=== PATIENT | female | born 1935 | race American Indian/Alaskan Native ===

== ENCOUNTER 2017-11-23 13:22 | Inpatient (IN) | payer OTHER ==
[2017-11-23 13:40] VITALS: BMI 28.3
[2017-11-23] MEDS ORDERED: Cefepime IV 1 gm in Dextrose 1 GM/50 ML BAG IVPB STA (14:07)
[2017-11-23] MEDS ORDERED: Albuterol-Ipratrop 3 mg / 0.5 (3 ml) UD INH STA (14:07)
--- NOTE | 2017-11-23 14:32 | C.PDOC ---
History Of Present Illness 82 yr old female presents to the ER for respiratory distress from retirement. Patient was given duoneb, PO prednisone, magnesium and terbutaline in route. ROS is unable to be obtained. Time Seen by Provider: 11/23/17 13:36 Chief Complaint (Nursing): Shortness Of Breath History Per: EMS, Other (retirement) History/Exam Limitations: clinical condition Onset/Duration Of Symptoms: Unknown Past Medical History Reviewed: Historical Data, Nursing Documentation, Vital Signs Vital Signs: Last Vital Signs Temp 98.1 F 11/23/17 13:37 Pulse 113 H 11/23/17 14:18 Resp 33 H 11/23/17 13:37 BP 88/31 L 11/23/17 13:37 Pulse Ox Family History: States: No Known Family Hx Review Of Systems Review Of Systems: ROS cannot be obtained secondary to pt's inabilty to answer questions. Physical Exam - Physical Exam Appears: Non-toxic Skin: Warm, Dry, No Rash Oral Mucosa: Moist Tongue: No Swelling Lips: No Swelling Neck: Normal, Normal ROM, Supple Cardiovascular: Rhythm Regular, No Murmur Respiratory: Decreased Breath Sounds (at the bases, bilateral), No Rales, Other (+ increased respiortory rate) Gastrointestinal/Abdominal: Normal Exam, Soft, No Tenderness, No Guarding, No Rebound Neurological/Psych: Other (unable to assess secondary to BIPAP, patient is opening eyes spontaneously) ED Course And Treatment - Laboratory Results Result Diagrams: 11/23/17 15:58 11/23/17 15:58 ECG: Interpreted By Me, Viewed By Me ECG Rhythm: Sinus Tachycardia Interpretation Of ECG: Normal intervals. Normal axis. Diffuse T wave flattening. Rate From EC (BPM) - Other Rad CXR X-Ray: Viewed By Me, Read By Radiologist Interpretation: PROCEDURE: CHEST RADIOGRAPH, 1 VIEW. HISTORY: SOB. COMPARISON: None available. FINDINGS: The right PICC line terminates in the axillary vein. LUNGS: There is patient rotation to the right. The lungs are well inflated. There is airspace disease in the right lower lobe. The left lung is clear. PLEURA: There is a moderate right pleural effusion. No pneumothorax or left pleural fluid seen. CARDIOVASCULAR: Normal. OSSEOUS STRUCTURES: No significant abnormalities. VISUALIZED UPPER ABDOMEN: Normal. OTHER FINDINGS: None. IMPRESSION: Suspect right lower lobe pneumonia and moderate right pleural effusion. Follow-up to resolution is advised. Right PICC line terminates in the axillary vein. Critical Care Time - Critical Care Note Total Time (in mins): 60 Documented critical care: time excludes all time spent performing seperately billable procedures. Medical Decision Making Medical Decision Making: IMPRESSION: COPD exacerbation PLAN: * CXR * EKG * Labs * Duoneb INH * Solumedrol IVP * Cefepime IVPB NOTE: * Daughter at bedside states the patient has a living will that is unavailable at this time * shelter staff were contacted in attempt to obtained the will * Dr. Cevallos & Dr. Roa were contacted regarding the patient * Dr. Roa at bedside - 1955 * Patient is admitted to ICU under Dr. Roa with Dr. Cevallos as ICU consult Disposition Discussed With DrFernanda: Sae Roa Doctor Will See Patient In The: ED Counseled Patient/Family Regarding: Studies Performed, Diagnosis - Disposition Referrals: Tyler Cevallos MD [Staff Provider] - Disposition: HOSPITALIZED Condition: GUARDED Forms: [facility] (Portuguese) - Clinical Impression Clinical Impression: Chr obstructive pulmonary disease w/ acute lower respiratory infxn - Scribe Statement The provider has reviewed the documentation as recorded by the Scribe Angie Best Provider Attestation: All medical record entries made by the Scribe were at my direction and personally dictated by me. I have reviewed the chart and agree that the record accurately reflects my personal performance of the history, physical exam, medical decision making, and the department course for this patient. I have also personally directed, reviewed, and agree with the discharge instructions and disposition.
[2017-11-23] MEDS ORDERED: Sodium Chloride 0.9% 1,000 ML IV ONE ×2 (14:34→16:21)
[2017-11-23] MEDS ORDERED: Sodium Chloride 0.9% 1,000 ML ONE (14:59)
--- NOTE | 2017-11-23 15:05 | RAD ---
PROCEDURE: CHEST RADIOGRAPH, 1 VIEW HISTORY: SOB COMPARISON: None available. FINDINGS: The right PICC line terminates in the axillary vein. LUNGS: There is patient rotation to the right. The lungs are well inflated. There is airspace disease in the right lower lobe. The left lung is clear. PLEURA: There is a moderate right pleural effusion. No pneumothorax or left pleural fluid seen. CARDIOVASCULAR: Normal. OSSEOUS STRUCTURES: No significant abnormalities. VISUALIZED UPPER ABDOMEN: Normal. OTHER FINDINGS: None. IMPRESSION: Suspect right lower lobe pneumonia and moderate right pleural effusion. Follow-up to resolution is advised. Right PICC line terminates in the axillary vein.
[2017-11-23 16:08] LABS: BASO # 0.1 K/uL (0.0-0.2); BASO % 0.1 % (0.0-2.0); EOS # 0.2 K/uL (0.0-0.7); EOS % 0.2 % (0.0-4.0); LYMPH # 2.2 K/uL (1.0-4.3); LYMPH % 2.8 % (20.0-40.0); MEAN CELL VOLUME 89.6 fL (81.0-99.0); MEAN CORPUSCULAR HEMOGLOBIN 26.1 pg (27.0-31.0); MEAN CORPUSCULAR HGB CONC 29.2 g/dL (33.0-37.0); MEAN PLATELET VOLUME 8.2 fL (7.2-11.7); MONO # 1.5 K/uL (0.0-0.8); NEUT # 71.7 K/uL (1.8-7.0); NEUT % 94.9 % (50.0-75.0); NRBC % 0.5 % (0.0-2.0); PLATELET COUNT 496 K/uL (130-400); RBC 4.56 Mil/uL (3.80-5.20); RED CELL DISTRIBUTION WIDTH 21.2 % (11.5-14.5)
[2017-11-23 16:14] LABS: ALBUMIN 2.7 g/dL (3.5-5.0); ALT/SGPT 17 U/L (9-52); AST/SGOT 44 U/L (14-36); BLOOD UREA NITROGEN 30 mg/dL (7-17); GFR AFRICAN-AMERICAN 38; GFR NON-AFRICAN AMERICAN 31; MAGNESIUM 3.2 mg/dL (1.6-2.3)
[2017-11-23 16:16] LABS: HEMOGLOBIN 12.2 g/dL (11.0-16.0); INR 0.9
[2017-11-23 16:17] LABS: WHITE BLOOD COUNT 75.7 K/uL (4.8-10.8)
[2017-11-23 16:26] LABS: B-TYPE NATRIURETIC PEPTIDE 3440 pg/mL (0-900)
[2017-11-23 16:52] LABS: ARTERIAL BLOOD GAS HCO3 16.2 mmol/L (21-28); ARTERIAL BLOOD GAS PCO2 45 mm/Hg (35-45); ARTERIAL BLOOD GAS PH 7.18 (7.35-7.45); ARTERIAL BLOOD GAS PO2 286 mm/Hg (80-100); ARTERIAL BLOOD GAS TCO2 18.2 mmol/L (22-28)
[2017-11-23] MEDS ORDERED: Piperacillin/Tazobact 2.25 GM in Sodium Chloride 100 ML IVPB SCH (17:15)
--- NOTE | 2017-11-23 17:29 | CP.PCM.CON ---
<[place] - Last Filed: 11/23/17 18:02> History of Present Illness - History of Present Illness History of Present Illness: 82 year old female with a past medical history of COPD, DM, Colon cancer (s/p resection: no chemotherapy or radiation), CAD, two myocardial infarctions (s/p angioplasty), ?spinal stenosis who comes in from the [facility] rehabilitation with complaints of shortness of breath. Patient was unable to talk and the history was obtained by the two daughters. Per the daughter the patient has had multiple stays at [facility] over the past two months(starting in October 2017) for the same symptoms. ROS unobtainable due to acuity of the condition. PMD: Dr. Cadena Past medical history: COPD, DM, colon cancer, cad, mi, ?spinal stenosis Allergies: Codeine, oxycodone Medications: Med's weren't on the patient. Daughter said she would go and bring them in for input. Past surgical history: resection of Colon Cancer (2010) Social history: Former smoker (40 years). Quit in 2005. Denies alcohol or illicit drug use. Review of Systems - Review of Systems Systems not reviewed;Unavailable: Acuity of Condition Past Patient History - Past Social History Smoking Status: Never Smoked - CARDIAC Hx Cardiac Disorders: Yes Hx Hypertension: Yes - PULMONARY Hx Respiratory Disorders: Yes Hx Chronic Obstructive Pulmonary Disease (COPD): Yes - ENDOCRINE/METABOLIC Hx Endocrine Disorders: Yes Hx Diabetes Mellitus Type 2: Yes - GASTROINTESTINAL Hx Gastrointestinal Disorders: Yes Other/Comment: Possible CDiff - PSYCHIATRIC Hx Psychophysiologic Disorder: Yes Hx Anxiety: Yes Hx Depression: Yes Hx Substance Use: No Meds Allergies/Adverse Reactions: Allergies Allergy/AdvReac Type Severity Reaction Status Date / Time codeine Allergy Verified 11/23/17 16:42 oxycodone Allergy Verified 11/23/17 16:42 - Medications Medications: Current Medications Piperacillin Sod/Tazobactam Sod (Zosyn 2.25 Gm Iv Premix) 2.25 gm in 50 mls @ 100 mls/hr IVPB Q8H NATHAN Vancomycin/Sodium Chloride (Vancomycin 1 Gm/Ns 200 Ml) 1 gm in 200 mls @ 133 mls/hr IVPB ONCE ONE Stop: 11/23/17 19:30 Pantoprazole Sodium (Protonix Inj) 40 mg IVP DAILY NATHAN Physical Exam - Head Exam Head Exam: ATRAUMATIC, NORMAL INSPECTION, NORMOCEPHALIC - ENT Exam ENT Exam: Mucous Membranes Moist, Normal Exam - Neck Exam Neck exam: Positive for: Normal Inspection - Respiratory Exam Respiratory Exam: Decreased Breath Sounds, Rhonchi. absent: Accessory Muscle Use, Wheezes, NORMAL BREATHING PATTERN - Cardiovascular Exam Cardiovascular Exam: REGULAR RHYTHM, +S1, +S2 - GI/Abdominal Exam GI & Abdominal Exam: Normal Bowel Sounds, Soft. absent: Tenderness - Extremities Exam Extremities exam: Positive for: normal inspection. Negative for: full ROM, pedal edema - Back Exam Back exam: NORMAL INSPECTION. absent: CVA tenderness (L), CVA tenderness (R), paraspinal tenderness - Neurological Exam Neurological exam: Alert - Psychiatric Exam Psychiatric exam: Normal Affect, Normal Mood - Skin Skin Exam: Dry, Intact, Normal Color Results - Vital Signs Recent Vital Signs: Last Vital Signs Temp 98.1 F 11/23/17 13:37 Pulse 113 H 11/23/17 14:18 Resp 33 H 11/23/17 13:37 BP 88/31 L 11/23/17 13:37 Pulse Ox - Labs Result Diagrams: 11/23/17 15:58 11/23/17 15:58 Labs: Laboratory Results - last 24 hr 11/23/17 11/23/17 11/23/17 15:58 15:58 15:58 WBC 75.7 H* RBC 4.56 Hgb 12.2 Hct 40.8 MCV 89.6 MCH 26.1 L MCHC 29.2 L RDW 21.2 H Plt Count 496 H MPV 8.2 Neut % (Auto) 94.9 H Lymph % (Auto) 2.8 L [place] % (Auto) 2.0 Eos % (Auto) 0.2 Baso % (Auto) 0.1 Neut # (Auto) 71.7 H Lymph # (Auto) 2.2 [place] # (Auto) 1.5 H Eos # (Auto) 0.2 Baso # (Auto) 0.1 PT 10.0 INR 0.9 APTT 68 H Puncture Site pCO2 pO2 HCO3 ABG pH ABG Total CO2 ABG O2 Saturation ABG Base Excess Danie Test ABG Potassium A-a O2 Difference Respiratory Index Glucose Lactate Vent Mode FiO2 Inspiratory BiPAP Expiratory BiPAP Crit Value Called To Crit Value Called By Crit Value Read Back Blood Gas Notified Time Sodium 127 L Potassium 4.7 Chloride 97 L Carbon Dioxide 19 L Anion Gap 15 BUN 30 H Creatinine 1.6 H Est GFR ( Amer) 38 Est GFR (Non-Af Amer) 31 Random Glucose 185 H Calcium 8.0 L Magnesium 3.2 H Total Bilirubin 0.3 AST 44 H ALT 17 Alkaline Phosphatase 199 H Troponin I < 0.0120 NT-Pro-B Natriuret Pep 3440 H Total Protein 5.5 L Albumin 2.7 L Globulin 2.8 Albumin/Globulin Ratio 1.0 Arterial Blood Potassium 11/23/17 16:49 WBC RBC Hgb Hct MCV MCH MCHC RDW Plt Count MPV Neut % (Auto) Lymph % (Auto) [place] % (Auto) Eos % (Auto) Baso % (Auto) Neut # (Auto) Lymph # (Auto) [place] # (Auto) Eos # (Auto) Baso # (Auto) PT INR APTT Puncture Site Lb pCO2 45 pO2 286 H HCO3 16.2 L ABG pH 7.18 L* ABG Total CO2 18.2 L ABG O2 Saturation 101.0 H ABG Base Excess -11.3 L Danie Test Na ABG Potassium 4.7 A-a O2 Difference 371.0 Respiratory Index 1.3 Glucose 194 H Lactate 2.7 H Vent Mode Bipap FiO2 100.0 Inspiratory BiPAP 14 Expiratory BiPAP 6 Crit Value Called To Dr. asencio Crit Value Called By Aydin hassan Crit Value Read Back Y Blood Gas Notified Time 1652 Sodium 128.0 L Potassium Chloride 104.0 Carbon Dioxide Anion Gap BUN Creatinine Est GFR ( Amer) Est GFR (Non-Af Amer) Random Glucose Calcium Magnesium Total Bilirubin AST ALT Alkaline Phosphatase Troponin I NT-Pro-B Natriuret Pep Total Protein Albumin Globulin Albumin/Globulin Ratio Arterial Blood Potassium 4.7 Assessment & Plan - Assessment and Plan (Free Text) Assessment: 82 year old female with past medical history of COPD, DM, CAD, 2MI(s/p angioplasty), colon cancer(s/p resection), ?spinal stenosis who comes in from the half-way rehabilitation due to COPD exacerbation. Plan: Neurology -AOX3. -No intervention at this time. Pulmonary -Chest xray showed possible right lower lobe pneumonia and moderate right pleurel effusion -Zosyn 2.25gm q8 -Vancomycin 1gm STAT dose. Will reassess in the morning. Endocrinology -ISS low -Accuchecks [facility] Hematology/ Oncology -Upon admission patient WBC:75.7. -Possible malignant process due to the marked elevated of the WBC count. -Patient has a medical history positive for colon cancer in 2010 s/p resection with no chemotherapy or radiation. -Hematology/onc consulted. Will f/u with results. PPX -Lovenox 30mg SC Daily -Protonix 40mg IVP Daily <Tyler Cevallos - Last Filed: 11/23/17 18:08> Meds - Medications Medications: Current Medications Albuterol/Ipratropium (Duoneb 3 Mg/0.5 Mg (3 Ml) Ud) 3 ml INH RQ4 NATHAN Enoxaparin Sodium (Lovenox) 30 mg SC DAILY NATHAN Piperacillin Sod/Tazobactam Sod (Zosyn 2.25 Gm Iv Premix) 2.25 gm in 50 mls @ 100 mls/hr IVPB Q8H NATHAN Vancomycin/Sodium Chloride (Vancomycin 1 Gm/Ns 200 Ml) 1 gm in 200 mls @ 133 mls/hr IVPB ONCE ONE Stop: 11/23/17 19:30 Insulin Aspart (Novolog) 0 unit SC [facility] PRN Reason: Protocol Methylprednisolone (Solu-Medrol) 40 mg IVP Q8 NATHAN Pantoprazole Sodium (Protonix Inj) 40 mg IVP DAILY [facility] Last Admin: 11/23/17 17:39 Dose: 40 mg Results - Vital Signs Recent Vital Signs: Last Vital Signs Temp 97.5 F L 11/23/17 17:38 Pulse 105 H 11/23/17 17:38 Resp 22 11/23/17 17:38 BP 127/66 11/23/17 17:38 Pulse Ox 100 11/23/17 17:38 - Labs Result Diagrams: 11/23/17 15:58 11/23/17 15:58 Labs: Laboratory Results - last 24 hr 11/23/17 11/23/17 11/23/17 15:58 15:58 15:58 WBC 75.7 H* RBC 4.56 Hgb 12.2 Hct 40.8 MCV 89.6 MCH 26.1 L MCHC 29.2 L RDW 21.2 H Plt Count 496 H MPV 8.2 Neut % (Auto) 94.9 H Lymph % (Auto) 2.8 L [place] % (Auto) 2.0 Eos % (Auto) 0.2 Baso % (Auto) 0.1 Neut # (Auto) 71.7 H Lymph # (Auto) 2.2 [place] # (Auto) 1.5 H Eos # (Auto) 0.2 Baso # (Auto) 0.1 Neutrophils % (Manual) 54 Band Neutrophils % 20 H* Lymphocytes % (Manual) 3 L Reactive Lymphs % 1 H Monocytes % (Manual) 3 Eosinophils % (Manual) 1 Metamyelocytes % 7 H Myelocytes % 8 H Promyelocytes % 3 H Nucleated RBC % 2 H Smudge Cells Present Platelet Estimate Increased H Large Platelets Present Hypochromasia (manual) Slight Anisocytosis (manual) Slight PT 10.0 INR 0.9 APTT 68 H Puncture Site pCO2 pO2 HCO3 ABG pH ABG Total CO2 ABG O2 Saturation ABG Base Excess Danie Test ABG Potassium A-a O2 Difference Respiratory Index Glucose Lactate Vent Mode FiO2 Inspiratory BiPAP Expiratory BiPAP Crit Value Called To Crit Value Called By Crit Value Read Back Blood Gas Notified Time Sodium 127 L Potassium 4.7 Chloride 97 L Carbon Dioxide 19 L Anion Gap 15 BUN 30 H Creatinine 1.6 H Est GFR ( Amer) 38 Est GFR (Non-Af Amer) 31 Random Glucose 185 H Calcium 8.0 L Magnesium 3.2 H Total Bilirubin 0.3 AST 44 H ALT 17 Alkaline Phosphatase 199 H Troponin I < 0.0120 NT-Pro-B Natriuret Pep 3440 H Total Protein 5.5 L Albumin 2.7 L Globulin 2.8 Albumin/Globulin Ratio 1.0 Arterial Blood Potassium 11/23/17 16:49 WBC RBC Hgb Hct MCV MCH MCHC RDW Plt Count MPV Neut % (Auto) Lymph % (Auto) [place] % (Auto) Eos % (Auto) Baso % (Auto) Neut # (Auto) Lymph # (Auto) [place] # (Auto) Eos # (Auto) Baso # (Auto) Neutrophils % (Manual) Band Neutrophils % Lymphocytes % (Manual) Reactive Lymphs % Monocytes % (Manual) Eosinophils % (Manual) Metamyelocytes % Myelocytes % Promyelocytes % Nucleated RBC % Smudge Cells Platelet Estimate Large Platelets Hypochromasia (manual) Anisocytosis (manual) PT INR APTT Puncture Site Lb pCO2 45 pO2 286 H HCO3 16.2 L ABG pH 7.18 L* ABG Total CO2 18.2 L ABG O2 Saturation 101.0 H ABG Base Excess -11.3 L Danie Test Na ABG Potassium 4.7 A-a O2 Difference 371.0 Respiratory Index 1.3 Glucose 194 H Lactate 2.7 H Vent Mode Bipap FiO2 100.0 Inspiratory BiPAP 14 Expiratory BiPAP 6 Crit Value Called To Dr. asencio Crit Value Called By Aydin [email or web address] Crit Value Read Back Y Blood Gas Notified Time 1652 Sodium 128.0 L Potassium Chloride 104.0 Carbon Dioxide Anion Gap BUN Creatinine Est GFR ( Amer) Est GFR (Non-Af Amer) Random Glucose Calcium Magnesium Total Bilirubin AST ALT Alkaline Phosphatase Troponin I NT-Pro-B Natriuret Pep Total Protein Albumin Globulin Albumin/Globulin Ratio Arterial Blood Potassium 4.7 Attending/Attestation - Attestation I have personally seen and examined this patient.: Yes I have fully participated in the care of the patient.: Yes I have reviewed all pertinent clinical information: Yes Notes (Text): 11/23/17 18:07 Patient seen and examined 82-year-old female transferred from subacute for shortness of breath On BiPAP Chest x-rayconsistent with right lung infiltrate/effusion Started on IV antibiotics Follow-up culture and sensitivity Bicarbonate for non-anion gap metabolic acidosis IV steroids and nebulizer treatment for COPD ICU monitoring
[2017-11-23 17:46] LABS: BANDS 20 % (0-2); EOSINOPHIL 1 % (0-4); LYMPHOCYTE 3 % (20-40); METAMYELOCYTE 7 % (0-0); MONOCYTE 3 % (0-10); MYELOCYTE 8 % (0-0); NEUTROPHIL 54 % (50-75); NUCLEATED RED BLOOD CELL 2 % (0-0); PROMYELOCYTE 3 % (0-0); REACTIVE LYMPHOCYTES 1 % (0-0); TOTAL CELLS COUNTED 100
[2017-11-23 17:47] LABS: ANISOCYTOSIS SLIGHT; HYPOCHROMIC SLIGHT; LARGE PLATELETS PRESENT; PLATELET ESTIMATE INCREASED (NORMAL); SMUDGE CELLS PRESENT
[2017-11-23] MEDS ORDERED: Piperacill/Tazo 2.25gm in Dex 2.25 GM/50 ML BAG IVPB SCH (18:00)
[2017-11-23] MEDS ORDERED: Vancomycin 1 gm/NS 200 ml 1 GM/200 ML BAG IVPB ONE (18:00)
[2017-11-23] MEDS ORDERED: Sodium Bicarbonate (8.4%) 50 Meq Syringe IVP ONE (18:03)
[2017-11-23 18:31] LABS: SQUAMOUS EPITHIAL 1 /hpf (0-5); URINE AMORPHOUS SEDIMENT OCC /ul (<OCC); URINE BACTERIA OCC (<OCC); URINE BILIRUBIN NEGATIVE (NEGATIVE); URINE BLOOD NEGATIVE (NEGATIVE); URINE CLARITY Hazy (Clear); URINE COLOR Amber (YELLOW); URINE GLUCOSE (UA) NORMAL (Normal); URINE HYALINE CAST >20 /lpf (0-2); URINE LEUKOCYTE ESTERASE NEG Leu/uL (Negative); URINE NITRATE NEGATIVE (NEGATIVE); URINE PROTEIN 1+ mg/dL (NEGATIVE); URINE UROBILINOGEN NORMAL mg/dL (0.2-1.0)
[2017-11-23 19:55] VITALS: RESP 19
[2017-11-23 21:49] VITALS: TEMP 97.1
[2017-11-23] MEDS: Albuterol-Ipratrop 3 mg / 0.5 (3 ml) UD INH SCH (21:49)
[2017-11-23] MEDS ORDERED: (Novolog) Insulin Aspart, Recombinant 100 u/ml 10 ml vial SC SCH (22:00)
[2017-11-23] MEDS ORDERED: MethylPREDNISolone 40 mg Vial IVP SCH (22:00)
[2017-11-23 22:19] VITALS: BP 121/56; O2SAT 93
--- NOTE | 2017-11-23 23:01 | CP.PCM.CON ---
History of Present Illness - History of Present Illness History of Present Illness: 82 year old female with a history of colon cancer s/p surgery and likely cured, COPD, recent hospitalization at [facility] for code sepsis, COPD exacerbation, admitted with shortness of breath, found to have leukocytosis. The patient is currently on bipap and I am unable to obtain a history from her. Per her daughter who are at bedside, she has had recurrent episodes of shortness of breath and she has been in and out of the hospital. Review of her records at [facility] shows her WBC peaked at 25,000 and normalized prior to DC in 10/2017. Her daughter are unaware of her having blood problems in the past. Peripheral smear: Increased WBC with bandemia, mild toxic granulation, mild anisopoikilocytosis, normal appearing platelets, no immature cells noted. Past medical, surgical, family, social history cannot be obtained from the patient Allergies: Codeine, oxycodone Review of systems cannot be obtained. Past Patient History - Past Medical History & Family History Past Medical History?: Yes - Past Social History Smoking Status: Never Smoked - CARDIAC Hx Cardiac Disorders: Yes Hx Hypertension: Yes - PULMONARY Hx Respiratory Disorders: Yes Hx Chronic Obstructive Pulmonary Disease (COPD): Yes - ENDOCRINE/METABOLIC Hx Endocrine Disorders: Yes Hx Diabetes Mellitus Type 2: Yes - HEMATOLOGICAL/ONCOLOGICAL Hx Cancer: Yes - MUSCULOSKELETAL/RHEUMATOLOGICAL Hx Falls: No - GASTROINTESTINAL Hx Gastrointestinal Disorders: Yes Other/Comment: Possible CDiff - PSYCHIATRIC Hx Psychophysiologic Disorder: Yes Hx Anxiety: Yes Hx Depression: Yes Hx Substance Use: No - ANESTHESIA Hx Anesthesia: Yes Hx Anesthesia Reactions: No Hx Malignant Hyperthermia: No Has any member of the family had a problem w/ anesthesia?: No Meds Allergies/Adverse Reactions: Allergies Allergy/AdvReac Type Severity Reaction Status Date / Time codeine Allergy Verified 11/23/17 16:42 oxycodone Allergy Verified 11/23/17 16:42 - Medications Medications: Current Medications Albuterol/Ipratropium (Duoneb 3 Mg/0.5 Mg (3 Ml) Ud) 3 ml INH RQ4 NATHAN Last Admin: 11/23/17 21:49 Dose: 3 ml Enoxaparin Sodium (Lovenox) 30 mg SC DAILY NATHAN Piperacillin Sod/Tazobactam Sod (Zosyn 2.25 Gm Iv Premix) 2.25 gm in 50 mls @ 100 mls/hr IVPB Q8H [facility] Last Admin: 11/23/17 18:28 Dose: 100 mls/hr Insulin Aspart (Novolog) 0 unit SC [facility] PRN Reason: Protocol Last Admin: 11/23/17 22:03 Dose: Not Given Methylprednisolone (Solu-Medrol) 40 mg IVP Q8 [facility] Last Admin: 11/23/17 22:05 Dose: 40 mg Pantoprazole Sodium (Protonix Inj) 40 mg IVP DAILY [facility] Last Admin: 11/23/17 17:39 Dose: 40 mg Physical Exam - Head Exam Head Exam: ATRAUMATIC - Eye Exam Eye Exam: Normal appearance - ENT Exam ENT Exam: Mucous Membranes Dry - Respiratory Exam Respiratory Exam: Decreased Breath Sounds - Cardiovascular Exam Cardiovascular Exam: +S1, +S2 - GI/Abdominal Exam GI & Abdominal Exam: Normal Bowel Sounds Results - Vital Signs Recent Vital Signs: Last Vital Signs Temp 97.1 F L 11/23/17 20:00 Pulse 104 H 11/23/17 22:00 Resp 19 11/23/17 22:00 BP 121/56 L 11/23/17 22:00 Pulse Ox 93 L 11/23/17 22:00 - Labs Result Diagrams: 11/23/17 15:58 11/23/17 15:58 Labs: Laboratory Results - last 24 hr 11/23/17 11/23/17 11/23/17 15:58 15:58 15:58 WBC 75.7 H* RBC 4.56 Hgb 12.2 Hct 40.8 MCV 89.6 MCH 26.1 L MCHC 29.2 L RDW 21.2 H Plt Count 496 H MPV 8.2 Neut % (Auto) 94.9 H Lymph % (Auto) 2.8 L [place] % (Auto) 2.0 Eos % (Auto) 0.2 Baso % (Auto) 0.1 Neut # (Auto) 71.7 H Lymph # (Auto) 2.2 [place] # (Auto) 1.5 H Eos # (Auto) 0.2 Baso # (Auto) 0.1 Neutrophils % (Manual) 54 Band Neutrophils % 20 H* Lymphocytes % (Manual) 3 L Reactive Lymphs % 1 H Monocytes % (Manual) 3 Eosinophils % (Manual) 1 Metamyelocytes % 7 H Myelocytes % 8 H Promyelocytes % 3 H Nucleated RBC % 2 H Smudge Cells Present Platelet Estimate Increased H Large Platelets Present Hypochromasia (manual) Slight Anisocytosis (manual) Slight PT 10.0 INR 0.9 APTT 68 H Puncture Site pCO2 pO2 HCO3 ABG pH ABG Total CO2 ABG O2 Saturation ABG Base Excess Danie Test ABG Potassium A-a O2 Difference Respiratory Index Glucose Lactate Vent Mode FiO2 Inspiratory BiPAP Expiratory BiPAP Crit Value Called To Crit Value Called By Crit Value Read Back Blood Gas Notified Time Sodium 127 L Potassium 4.7 Chloride 97 L Carbon Dioxide 19 L Anion Gap 15 BUN 30 H Creatinine 1.6 H Est GFR ( Amer) 38 Est GFR (Non-Af Amer) 31 POC Glucose (mg/dL) Random Glucose 185 H Calcium 8.0 L Magnesium 3.2 H Total Bilirubin 0.3 AST 44 H ALT 17 Alkaline Phosphatase 199 H Troponin I < 0.0120 NT-Pro-B Natriuret Pep 3440 H Total Protein 5.5 L Albumin 2.7 L Globulin 2.8 Albumin/Globulin Ratio 1.0 Arterial Blood Potassium Urine Color Urine Clarity Urine pH Ur Specific [place] Urine Protein Urine Glucose (UA) Urine Ketones Urine Blood Urine Nitrate Urine Bilirubin Urine Urobilinogen Ur Leukocyte Esterase Urine WBC (Auto) Urine RBC (Auto) Ur Squamous Epith Cells Amorphous Sediment Urine Bacteria Hyaline Casts Urine Yeast (Budding) 11/23/17 11/23/17 11/23/17 16:49 18:02 18:12 WBC RBC Hgb Hct MCV MCH MCHC RDW Plt Count MPV Neut % (Auto) Lymph % (Auto) [place] % (Auto) Eos % (Auto) Baso % (Auto) Neut # (Auto) Lymph # (Auto) [place] # (Auto) Eos # (Auto) Baso # (Auto) Neutrophils % (Manual) Band Neutrophils % Lymphocytes % (Manual) Reactive Lymphs % Monocytes % (Manual) Eosinophils % (Manual) Metamyelocytes % Myelocytes % Promyelocytes % Nucleated RBC % Smudge Cells Platelet Estimate Large Platelets Hypochromasia (manual) Anisocytosis (manual) PT INR APTT Puncture Site Lb pCO2 45 pO2 286 H HCO3 16.2 L ABG pH 7.18 L* ABG Total CO2 18.2 L ABG O2 Saturation 101.0 H ABG Base Excess -11.3 L Danie Test Na ABG Potassium 4.7 A-a O2 Difference 371.0 Respiratory Index 1.3 Glucose 194 H Lactate 2.7 H Vent Mode Bipap FiO2 100.0 Inspiratory BiPAP 14 Expiratory BiPAP 6 Crit Value Called To Dr. asencio Crit Value Called By Aydin hassan Crit Value Read Back Y Blood Gas Notified Time 1652 Sodium 128.0 L Potassium Chloride 104.0 Carbon Dioxide Anion Gap BUN Creatinine Est GFR ( Amer) Est GFR (Non-Af Amer) POC Glucose (mg/dL) 173 H Random Glucose Calcium Magnesium Total Bilirubin AST ALT Alkaline Phosphatase Troponin I NT-Pro-B Natriuret Pep Total Protein Albumin Globulin Albumin/Globulin Ratio Arterial Blood Potassium 4.7 Urine Color Trupti Urine Clarity Hazy Urine pH 5.0 Ur Specific [place] 1.027 Urine Protein 1+ H Urine Glucose (UA) Normal Urine Ketones Trace Urine Blood Negative Urine Nitrate Negative Urine Bilirubin Negative Urine Urobilinogen Normal Ur Leukocyte Esterase Neg Urine WBC (Auto) 3 Urine RBC (Auto) 6 H Ur Squamous Epith Cells 1 Amorphous Sediment Occ H Urine Bacteria Occ H Hyaline Casts >20 H Urine Yeast (Budding) Many H 11/23/17 21:24 WBC RBC Hgb Hct MCV MCH MCHC RDW Plt Count MPV Neut % (Auto) Lymph % (Auto) [place] % (Auto) Eos % (Auto) Baso % (Auto) Neut # (Auto) Lymph # (Auto) [place] # (Auto) Eos # (Auto) Baso # (Auto) Neutrophils % (Manual) Band Neutrophils % Lymphocytes % (Manual) Reactive Lymphs % Monocytes % (Manual) Eosinophils % (Manual) Metamyelocytes % Myelocytes % Promyelocytes % Nucleated RBC % Smudge Cells Platelet Estimate Large Platelets Hypochromasia (manual) Anisocytosis (manual) PT INR APTT Puncture Site pCO2 pO2 HCO3 ABG pH ABG Total CO2 ABG O2 Saturation ABG Base Excess Danie Test ABG Potassium A-a O2 Difference Respiratory Index Glucose Lactate Vent Mode FiO2 Inspiratory BiPAP Expiratory BiPAP Crit Value Called To Crit Value Called By Crit Value Read Back Blood Gas Notified Time Sodium Potassium Chloride Carbon Dioxide Anion Gap BUN Creatinine Est GFR ( Amer) Est GFR (Non-Af Amer) POC Glucose (mg/dL) 214 H Random Glucose Calcium Magnesium Total Bilirubin AST ALT Alkaline Phosphatase Troponin I NT-Pro-B Natriuret Pep Total Protein Albumin Globulin Albumin/Globulin Ratio Arterial Blood Potassium Urine Color Urine Clarity Urine pH Ur Specific [place] Urine Protein Urine Glucose (UA) Urine Ketones Urine Blood Urine Nitrate Urine Bilirubin Urine Urobilinogen Ur Leukocyte Esterase Urine WBC (Auto) Urine RBC (Auto) Ur Squamous Epith Cells Amorphous Sediment Urine Bacteria Hyaline Casts Urine Yeast (Budding) Assessment & Plan (1) Leukocytosis Assessment and Plan: rule out infectious etiology ? reactive, recent steroids WBC normale in 10/2017 at [facility] but will order flow cytometery if WBC does not decline tomorrow to rule out monoclonal population of cells Status: Acute (2) Coagulopathy Assessment and Plan: prolonged PTT ? heparin in line will repeat coags in AM Thank you for this interesting consult. Status: Acute
[2017-11-24] MEDS: Albuterol-Ipratrop 3 mg / 0.5 (3 ml) UD INH SCH ×2 (00:25→03:12)
[2017-11-24 05:35] VITALS: PULSE 110
[2017-11-24 06:52] LABS: PROTHROMBIN TIME 10.6 SECONDS (9.7-12.2)
[2017-11-24 06:52] LABS: BASO # 0.2 K/uL (0.0-0.2); BASO % 0.2 % (0.0-2.0); EOS # 0.3 K/uL (0.0-0.7); EOS % 0.4 % (0.0-4.0); HEMOGLOBIN 11.7 g/dL (11.0-16.0); LYMPH % 4.4 % (20.0-40.0); MEAN CELL VOLUME 91.4 fL (81.0-99.0); MEAN CORPUSCULAR HEMOGLOBIN 26.7 pg (27.0-31.0); MEAN CORPUSCULAR HGB CONC 29.2 g/dL (33.0-37.0); MEAN PLATELET VOLUME 8.2 fL (7.2-11.7); MONO % 2.2 % (0.0-10.0); NEUT # 83.7 K/uL (1.8-7.0); NEUT % 92.8 % (50.0-75.0); NRBC % 0.8 % (0.0-2.0); PLATELET COUNT 330 K/uL (130-400); RBC 4.38 Mil/uL (3.80-5.20)
[2017-11-24 06:56] LABS: WHITE BLOOD COUNT 90.1 K/uL (4.8-10.8)
[2017-11-24] MEDS ORDERED: Sodium Bicarbonate (8.4%) 50 Meq Syringe ONE (07:42)
[2017-11-24] MEDS ORDERED: DOPamine 400mg/250ml D5W IV ONE (07:42)
[2017-11-24] MEDS ORDERED: EPINEPHrine 1 mg/ml (1:1000) Inj ONE (07:42)
[2017-11-24 08:33] LABS: ANISOCYTOSIS MODERATE; BANDS 33 % (0-2); LYMPHOCYTE 4 % (20-40); METAMYELOCYTE 8 % (0-0); MONOCYTE 1 % (0-10); MYELOCYTE 6 % (0-0); NUCLEATED RED BLOOD CELL 2 % (0-0); PLATELET ESTIMATE NORMAL (NORMAL); PROMYELOCYTE 2 % (0-0); TOTAL CELLS COUNTED 100; TOXIC GRANULATION PRESENT
[2017-11-24 08:34] LABS: BURR CELLS SLIGHT; NEUTROPHIL 46 % (50-75)
--- NOTE | 2017-11-24 09:26 | CP.PCM.CON ---
History of Present Illness - History of Present Illness History of Present Illness: Palliative consult requested by Doctor Cid for goals of care and Code status discussion Patient is a 82 yo female admitted from halfway with shortness of breath. Per patient's daughter, patient had similar episodes in past , especially since October when she had multiple readmissions to [facility] for similar symptoms. On this admission patient was diagnosed with exacerbation of COPD and Solu Medrol, Zosyn IVand Lovenox initiated. O2 provided via BiPap. Of concern is patient's WBC of 90.1 today, up from 75.5 yesterday. At [facility] WBC peak was 25.Doctor Leydi is called on case. Patient transfered to ICU for further care. PMH: COPD, DM, colon resection due to colon CA, no chemo/no radiation, CAD, [place] Soc. hx: single, [place] resident Family Hx: daughter denies known family Hx, patient unable to answer questions Review of Systems - Review of Systems All systems: reviewed and no additional remarkable complaints except Review of Systems: ROS unobtainable from patient due to acute respiratory distress. Per nursing, patient still in need for high level of O2 supplement, anxious, afebrile. - Constitutional Constitutional: absent: As Per HPI, Anorexia, Chills, Daytime Sleepiness, Excessive Sweating, Fatigue, Fever, Frequent Falls, Headache, Increased Appetite , Lethargy, Malaise, Night Sweats, Snoring, Sleep Apnea, Weight Gain, Weight Loss, Weakness, Other - EENT Eyes: absent: As Per HPI, Blind Spots, Blurred Vision, Change in Vision, Decreased Night Vision, Diplopia, Discharge, Dry Eye, Exophthalmos, Floaters, Irritation, Itchy Eyes, Loss of Peripheral Vision, Pain, Photophobia, Requires Corrective Lenses, Sees Flashes, Spots in Vision, Tunnel Vision, Other Visual Disturbances, Loss of Vision, Other Ears: absent: As Per HPI, Decreased Hearing, Ear Discharge, Ear Pain, Tinnitus, Abnormal Hearing, Disequilibrium, Dizziness, Other Nose/Mouth/Throat: absent: As Per HPI, Epistaxis, Nasal Congestion, Nasal Discharge, Nasal Obstruction, Nasal Trauma, Nose Pain, Post Nasal Drip, Sinus Pain, Sinus Pressure, Bleeding Gums, Change in Voice, Dental Pain, Dry Mouth, Dysphagia, Halitosis, Hoarsness, Lip Swelling, Mouth Lesions, Mouth Pain, Odynophagia, Sore Throat, Throat Swelling, Tongue Swelling, Facial Pain, Neck Pain, Neck Mass, Other - Breasts Breasts: absent: As Per HPI, Change in Shape, Mass, Pain, Nipple Discharge, Nipple Inversion, Skin Changes, Swelling, Other - Cardiovascular Cardiovascular: Rapid Heart Rate - Respiratory Respiratory: Dyspnea Additional comments: SOB - Gastrointestinal Gastrointestinal: absent: As Per HPI, Abdominal Pain, Belching, Bloating, Change in Bowel Habits, Change in Stool Character, Coffee Ground Emesis, Constipation, Cramping, Diarrhea, Dyspepsia, Dysphagia, Early Satiety, Excessive Flatus, Fecal Incontinence, Heartburn, Hematemesis, Hematochezia, Loose Stools, Melena, Nausea, Odynophagia, Temesmus, Vomiting, Other - Genitourinary Genitourinary: Urinary Incontinence - Reproductive: Female Reproductive:Female: Post Menopausal - Menstruation Menstruation: Post Menopausal - Musculoskeletal Musculoskeletal: Muscle Weakness - Neurological Neurological: Weakness - Psychiatric Psychiatric: Anxiety - Endocrine Endocrine: absent: As Per HPI, Change in Body Appearance, Change in Libido, Cold Intolorance, Deepening of Voice, Excessive Sweating, Fatigue, Flushing, Heat Intolorance, Increase in Ring/Shoe/Hat Size, Palpitations, Polydipsia, Polyphagia, Polyuria, Other - Hematologic/Lymphatic Hematologic: absent: As Per HPI, Easy Bleeding, Easy Bruising, Lymphadenopathy, Other Past Patient History - Past Medical History & Family History Past Medical History?: Yes - Past Social History Smoking Status: Never Smoked - CARDIAC Hx Cardiac Disorders: Yes Hx Hypertension: Yes - PULMONARY Hx Respiratory Disorders: Yes Hx Chronic Obstructive Pulmonary Disease (COPD): Yes - ENDOCRINE/METABOLIC Hx Endocrine Disorders: Yes Hx Diabetes Mellitus Type 2: Yes - HEMATOLOGICAL/ONCOLOGICAL Hx Cancer: Yes - MUSCULOSKELETAL/RHEUMATOLOGICAL Hx Falls: No - GASTROINTESTINAL Hx Gastrointestinal Disorders: Yes Other/Comment: Possible CDiff - PSYCHIATRIC Hx Psychophysiologic Disorder: Yes Hx Anxiety: Yes Hx Depression: Yes Hx Substance Use: No - ANESTHESIA Hx Anesthesia: Yes Hx Anesthesia Reactions: No Hx Malignant Hyperthermia: No Has any member of the family had a problem w/ anesthesia?: No Meds Allergies/Adverse Reactions: Allergies Allergy/AdvReac Type Severity Reaction Status Date / Time codeine Allergy Verified 11/23/17 16:42 oxycodone Allergy Verified 11/23/17 16:42 - Medications Medications: Current Medications Albuterol/Ipratropium (Duoneb 3 Mg/0.5 Mg (3 Ml) Ud) 3 ml INH RQ4 [facility] Last Admin: 11/24/17 03:12 Dose: 3 ml Enoxaparin Sodium (Lovenox) 30 mg SC DAILY [facility] Piperacillin Sod/Tazobactam Sod (Zosyn 2.25 Gm Iv Premix) 2.25 gm in 50 mls @ 100 mls/hr IVPB Q8H [facility] Last Admin: 11/23/17 18:28 Dose: 100 mls/hr Insulin Aspart (Novolog) 0 unit SC ACHS [facility] PRN Reason: Protocol Last Admin: 11/23/17 22:03 Dose: Not Given Methylprednisolone (Solu-Medrol) 40 mg IVP Q8 [facility] Last Admin: 11/23/17 22:05 Dose: 40 mg Pantoprazole Sodium (Protonix Inj) 40 mg IVP DAILY [facility] Last Admin: 11/23/17 17:39 Dose: 40 mg Physical Exam - Constitutional Appears: In Acute Distress - Head Exam Head Exam: ATRAUMATIC, NORMAL INSPECTION, NORMOCEPHALIC - Eye Exam Eye Exam: EOMI, Normal appearance, PERRL Pupil Exam: NORMAL ACCOMODATION, PERRL - ENT Exam ENT Exam: Mucous Membranes Dry - Neck Exam Neck exam: Positive for: Normal Inspection - Respiratory Exam Respiratory Exam: Accessory Muscle Use, Decreased Breath Sounds - Cardiovascular Exam Cardiovascular Exam: Tachycardia, REGULAR RHYTHM - GI/Abdominal Exam GI & Abdominal Exam: Diminished Bowel Sounds, Soft - Rectal Exam Rectal Exam: Deferred - Extremities Exam Extremities exam: Positive for: normal inspection - Back Exam Back exam: NORMAL INSPECTION - Neurological Exam Neurological exam: Alert - Psychiatric Exam Psychiatric exam: Anxious - Skin Skin Exam: Normal Color, Warm Results - Vital Signs Recent Vital Signs: Last Vital Signs Temp 97.1 F L 11/23/17 20:00 Pulse 110 H 11/24/17 05:33 Resp 19 11/23/17 22:00 BP 121/56 L 11/23/17 22:00 Pulse Ox 93 L 11/23/17 22:00 - Labs Result Diagrams: 11/24/17 06:40 11/23/17 15:58 Labs: Laboratory Results - last 24 hr 02/20/18 02/20/18 02/20/18 15:58 15:58 15:58 WBC 75.7 H* RBC 4.56 Hgb 12.2 Hct 40.8 MCV 89.6 MCH 26.1 L MCHC 29.2 L RDW 21.2 H Plt Count 496 H MPV 8.2 Neut % (Auto) 94.9 H Lymph % (Auto) 2.8 L [place] % (Auto) 2.0 Eos % (Auto) 0.2 Baso % (Auto) 0.1 Neut # (Auto) 71.7 H Lymph # (Auto) 2.2 [place] # (Auto) 1.5 H Eos # (Auto) 0.2 Baso # (Auto) 0.1 Neutrophils % (Manual) 54 Band Neutrophils % 20 H* Lymphocytes % (Manual) 3 L Reactive Lymphs % 1 H Monocytes % (Manual) 3 Eosinophils % (Manual) 1 Metamyelocytes % 7 H Myelocytes % 8 H Promyelocytes % 3 H Nucleated RBC % 2 H Smudge Cells Present Toxic Granulation Platelet Estimate Increased H Large Platelets Present Hypochromasia (manual) Slight Anisocytosis (manual) Slight [place] Cells PT 10.0 INR 0.9 APTT 68 H Puncture Site pCO2 pO2 HCO3 ABG pH ABG Total CO2 ABG O2 Saturation ABG Base Excess Danie Test ABG Potassium A-a O2 Difference Respiratory Index Glucose Lactate Vent Mode FiO2 Inspiratory BiPAP Expiratory BiPAP Crit Value Called To Crit Value Called By Crit Value Read Back Blood Gas Notified Time Sodium 127 L Potassium 4.7 Chloride 97 L Carbon Dioxide 19 L Anion Gap 15 BUN 30 H Creatinine 1.6 H Est GFR ( Amer) 38 Est GFR (Non-Af Amer) 31 POC Glucose (mg/dL) Random Glucose 185 H Lactic Acid Calcium 8.0 L Magnesium 3.2 H Total Bilirubin 0.3 AST 44 H ALT 17 Alkaline Phosphatase 199 H Troponin I < 0.0120 NT-Pro-B Natriuret Pep 3440 H Total Protein 5.5 L Albumin 2.7 L Globulin 2.8 Albumin/Globulin Ratio 1.0 Arterial Blood Potassium Urine Color Urine Clarity Urine pH Ur Specific [place] Urine Protein Urine Glucose (UA) Urine Ketones Urine Blood Urine Nitrate Urine Bilirubin Urine Urobilinogen Ur Leukocyte Esterase Urine WBC (Auto) Urine RBC (Auto) Ur Squamous Epith Cells Amorphous Sediment Urine Bacteria Hyaline Casts Urine Yeast (Budding) 11/23/17 11/23/17 11/23/17 16:49 18:02 18:12 WBC RBC Hgb Hct MCV MCH MCHC RDW Plt Count MPV Neut % (Auto) Lymph % (Auto) [place] % (Auto) Eos % (Auto) Baso % (Auto) Neut # (Auto) Lymph # (Auto) [place] # (Auto) Eos # (Auto) Baso # (Auto) Neutrophils % (Manual) Band Neutrophils % Lymphocytes % (Manual) Reactive Lymphs % Monocytes % (Manual) Eosinophils % (Manual) Metamyelocytes % Myelocytes % Promyelocytes % Nucleated RBC % Smudge Cells Toxic Granulation Platelet Estimate Large Platelets Hypochromasia (manual) Anisocytosis (manual) [place]ah Cells PT INR APTT Puncture Site Lb pCO2 45 pO2 286 H HCO3 16.2 L ABG pH 7.18 L* ABG Total CO2 18.2 L ABG O2 Saturation 101.0 H ABG Base Excess -11.3 L Danie Test Na ABG Potassium 4.7 A-a O2 Difference 371.0 Respiratory Index 1.3 Glucose 194 H Lactate 2.7 H Vent Mode Bipap FiO2 100.0 Inspiratory BiPAP 14 Expiratory BiPAP 6 Crit Value Called To Dr. cid Crit Value Called By Aydin hassan Crit Value Read Back Y Blood Gas Notified Time 1652 Sodium 128.0 L Potassium Chloride 104.0 Carbon Dioxide Anion Gap BUN Creatinine Est GFR ( Amer) Est GFR (Non-Af Amer) POC Glucose (mg/dL) 173 H Random Glucose Lactic Acid Calcium Magnesium Total Bilirubin AST ALT Alkaline Phosphatase Troponin I NT-Pro-B Natriuret Pep Total Protein Albumin Globulin Albumin/Globulin Ratio Arterial Blood Potassium 4.7 Urine Color Trupti Urine Clarity Hazy Urine pH 5.0 Ur Specific [place] 1.027 Urine Protein 1+ H Urine Glucose (UA) Normal Urine Ketones Trace Urine Blood Negative Urine Nitrate Negative Urine Bilirubin Negative Urine Urobilinogen Normal Ur Leukocyte Esterase Neg Urine WBC (Auto) 3 Urine RBC (Auto) 6 H Ur Squamous Epith Cells 1 Amorphous Sediment Occ H Urine Bacteria Occ H Hyaline Casts >20 H Urine Yeast (Budding) Many H 11/23/17 11/24/17 11/24/17 21:24 06:37 06:37 WBC RBC Hgb Hct MCV MCH MCHC RDW Plt Count MPV Neut % (Auto) Lymph % (Auto) [place] % (Auto) Eos % (Auto) Baso % (Auto) Neut # (Auto) Lymph # (Auto) [place] # (Auto) Eos # (Auto) Baso # (Auto) Neutrophils % (Manual) Band Neutrophils % Lymphocytes % (Manual) Reactive Lymphs % Monocytes % (Manual) Eosinophils % (Manual) Metamyelocytes % Myelocytes % Promyelocytes % Nucleated RBC % Smudge Cells Toxic Granulation Platelet Estimate Large Platelets Hypochromasia (manual) Anisocytosis (manual) [place]ah Cells PT 10.6 INR 1.0 APTT 76 H D Puncture Site pCO2 pO2 HCO3 ABG pH ABG Total CO2 ABG O2 Saturation ABG Base Excess Danie Test ABG Potassium A-a O2 Difference Respiratory Index Glucose Lactate Vent Mode FiO2 Inspiratory BiPAP Expiratory BiPAP Crit Value Called To Crit Value Called By Crit Value Read Back Blood Gas Notified Time Sodium Potassium Chloride Carbon Dioxide Anion Gap BUN Creatinine Est GFR ( Amer) Est GFR (Non-Af Amer) POC Glucose (mg/dL) 214 H Random Glucose Lactic Acid 7.2 H* Calcium Magnesium Total Bilirubin AST ALT Alkaline Phosphatase Troponin I NT-Pro-B Natriuret Pep Total Protein Albumin Globulin Albumin/Globulin Ratio Arterial Blood Potassium Urine Color Urine Clarity Urine pH Ur Specific [place] Urine Protein Urine Glucose (UA) Urine Ketones Urine Blood Urine Nitrate Urine Bilirubin Urine Urobilinogen Ur Leukocyte Esterase Urine WBC (Auto) Urine RBC (Auto) Ur Squamous Epith Cells Amorphous Sediment Urine Bacteria Hyaline Casts Urine Yeast (Budding) 11/24/17 11/24/17 06:40 07:20 WBC 90.1 H* RBC 4.38 Hgb 11.7 Hct 40.0 MCV 91.4 MCH 26.7 L MCHC 29.2 L RDW 21.0 H Plt Count 330 D MPV 8.2 Neut % (Auto) 92.8 H Lymph % (Auto) 4.4 L [place] % (Auto) 2.2 Eos % (Auto) 0.4 Baso % (Auto) 0.2 Neut # (Auto) 83.7 H Lymph # (Auto) 4.0 [place] # (Auto) 2.0 H Eos # (Auto) 0.3 Baso # (Auto) 0.2 Neutrophils % (Manual) 46 L Band Neutrophils % 33 H* Lymphocytes % (Manual) 4 L Reactive Lymphs % Monocytes % (Manual) 1 Eosinophils % (Manual) Metamyelocytes % 8 H Myelocytes % 6 H Promyelocytes % 2 H Nucleated RBC % 2 H Smudge Cells Toxic Granulation Present Platelet Estimate Normal Large Platelets Hypochromasia (manual) Anisocytosis (manual) Moderate [place] Cells Slight PT INR APTT Puncture Site pCO2 pO2 HCO3 ABG pH ABG Total CO2 ABG O2 Saturation ABG Base Excess Danie Test ABG Potassium A-a O2 Difference Respiratory Index Glucose Lactate Vent Mode FiO2 Inspiratory BiPAP Expiratory BiPAP Crit Value Called To Crit Value Called By Crit Value Read Back Blood Gas Notified Time Sodium Potassium Chloride Carbon Dioxide Anion Gap BUN Creatinine Est GFR ( Amer) Est GFR (Non-Af Amer) POC Glucose (mg/dL) 172 H Random Glucose Lactic Acid Calcium Magnesium Total Bilirubin AST ALT Alkaline Phosphatase Troponin I NT-Pro-B Natriuret Pep Total Protein Albumin Globulin Albumin/Globulin Ratio Arterial Blood Potassium Urine Color Urine Clarity Urine pH Ur Specific [place] Urine Protein Urine Glucose (UA) Urine Ketones Urine Blood Urine Nitrate Urine Bilirubin Urine Urobilinogen Ur Leukocyte Esterase Urine WBC (Auto) Urine RBC (Auto) Ur Squamous Epith Cells Amorphous Sediment Urine Bacteria Hyaline Casts Urine Yeast (Budding) Assessment & Plan - Assessment and Plan (Free Text) Assessment: Palliative consult There is no Advance Directive on chart, PPS 10% I reviewed medical records, all diagnostic studies, examined patient and discussed goals of care with daughter Carmen. Patient seen in ER yesterday upon admission in acute distress with BiPap on , alert and with affect that is anxious. Shallow, fast breathing, RR 25, O2Sat 93% . HR 105, ST. BP 121/56, afebrile. WBC 90.1. MD leydi león. Skin cool to touch. Feet cyanotic, poor capillary refill. Abdomen flat and soft. Daughter Carmen at bed side, also very anxious. She reports never seeing her mother at this condition. Patient makes eye contact with her and tells her " do what you think is OK". I helped daughter to calm down , away from the patient as they made each other' s anxiety much worse. The daughter said, she thought her mother had made Living Will in the past, but the copy was not available after calling the [place]. In consulting with her sister over the phone , Carmen confirmed that patient did not have Living will made in the past. I introduced POLST to daughter. Due to high anxiety she was not able to decide on Code status. After phone discussion with her sister they agreed to a Full Code with all aggressive interventions , including CPR and intubation. The daughters wanted to allow patient and themselves enough time to think things trough. I supported her and assisted with completing POLST, calling for Full Code. This was shared with Natalia RN in charge. Impression * Acute respiratory distress * Anxiety * Anticipatory grief among family members * Abnormal blood results Plan * Continue O2 supplement and Steroids * Reassure patient of her safety . * Provide family with updates * Monitor as per Doctor Holley
--- NOTE | 2017-11-24 09:51 | CP.PCM.PN ---
Subjective - Date & Time of Evaluation Date of Evaluation: 11/24/17 Time of Evaluation: 09:50 - Subjective Subjective: Patient went into Cardiac arrest this morning. Elkin Coello was called and CPR/ ACLS protocol was followed. Patient didn't respond and shortly after. Objective - Vital Signs/Intake and Output Vital Signs (last 24 hours): Temp Pulse Resp BP Pulse Ox 97.1 F L 110 H 19 121/56 L 93 L 11/23/17 20:00 11/24/17 05:33 11/23/17 22:00 11/23/17 22:00 11/23/17 22:00 Intake and Output: 11/24/17 11/24/17 06:59 18:59 Intake Total 400 Output Total 135 Balance 265 - Medications Medications: Current Medications Albuterol/Ipratropium (Duoneb 3 Mg/0.5 Mg (3 Ml) Ud) 3 ml INH RQ4 [facility] Last Admin: 11/24/17 03:12 Dose: 3 ml Enoxaparin Sodium (Lovenox) 30 mg SC DAILY [facility] Piperacillin Sod/Tazobactam Sod (Zosyn 2.25 Gm Iv Premix) 2.25 gm in 50 mls @ 100 mls/hr IVPB Q8H [facility] Last Admin: 11/23/17 18:28 Dose: 100 mls/hr Insulin Aspart (Novolog) 0 unit SC ACHS [facility] PRN Reason: Protocol Last Admin: 11/23/17 22:03 Dose: Not Given Methylprednisolone (Solu-Medrol) 40 mg IVP Q8 [facility] Last Admin: 11/23/17 22:05 Dose: 40 mg Pantoprazole Sodium (Protonix Inj) 40 mg IVP DAILY [facility] Last Admin: 11/23/17 17:39 Dose: 40 mg - Labs Labs: 11/24/17 06:40 11/23/17 15:58 PT 10.6 SECONDS (9.7-12.2) 11/24/17 06:37 INR 1.0 11/24/17 06:37 APTT 76 SECONDS (21-34) H D 11/24/17 06:37
[2017-11-24] MEDS ORDERED: Enoxaparin 30 mg Syringe SC SCH (10:00)
--- NOTE | 2017-11-24 10:39 | CP.PCM.PRO ---
Pronouncement of Note - Clinical Findings Physical Exam: Absent Heart & Breath Sounds - Pronouncement Time Time of Pronouncement of : 07:45 - Notifications Pronouncement Notifications: Family Notified Signalling And Communications Engineer Notified: Yes - Autopsy Autopsy Requested: No
--- NOTE | 2017-11-24 11:48 | CARD ---
APPROVED REPORT EKG Measurement Heart [id number] <Conclusion> Sinus tachycardia T wave abnormality, consider inferior ischemia Abnormal ECG
--- NOTE | 2017-11-25 00:53 | CP.PCM.HP ---
History of Present Illness - History of Present Illness History of Present Illness: 82yoF with H/O Severe COPD on Home Oxygen was at [facility] and SNF when she developed Acute respiratory Distress, and was started on BIPAP. She is currently being worked up by the ER attending and being evaluated by the ICU attending due to Acute respiratory Failure. Present on Admission - Present on Admission Any Indicators Present on Admission: Yes History of Uncontrolled Diabetes: No Urinary Catheter: Yes Decubitus Ulcer Present: No Review of Systems - Review of Systems All systems: reviewed and no additional remarkable complaints except Past Patient History - Past Medical History & Family History Past Medical History?: Yes Past Family History: Reviewed and not pertinent - Past Social History Smoking Status: Former Smoker Alcohol: Occasional Drugs: Denies - CARDIAC Hx Cardiac Disorders: Yes Hx Hypertension: Yes - PULMONARY Hx Respiratory Disorders: Yes Hx Chronic Obstructive Pulmonary Disease (COPD): Yes - ENDOCRINE/METABOLIC Hx Endocrine Disorders: Yes Hx Diabetes Mellitus Type 2: Yes - HEMATOLOGICAL/ONCOLOGICAL Hx Cancer: Yes - MUSCULOSKELETAL/RHEUMATOLOGICAL Hx Falls: No - GASTROINTESTINAL Hx Gastrointestinal Disorders: Yes Other/Comment: Possible CDiff - PSYCHIATRIC Hx Psychophysiologic Disorder: Yes Hx Anxiety: Yes Hx Depression: Yes Hx Substance Use: No - ANESTHESIA Hx Anesthesia: Yes Hx Anesthesia Reactions: No Hx Malignant Hyperthermia: No Has any member of the family had a problem w/ anesthesia?: No Meds Allergies/Adverse Reactions: Allergies Allergy/AdvReac Type Severity Reaction Status Date / Time codeine Allergy Verified 11/23/17 16:42 oxycodone Allergy Verified 11/23/17 16:42 Physical Exam - Constitutional Appears: In Acute Distress, Cachectic, Chronically Ill - Respiratory Exam Respiratory Exam: Accessory Muscle Use, Decreased Breath Sounds, Rhonchi, Wheezes, Respiratory Distress - Cardiovascular Exam Cardiovascular Exam: Tachycardia, +S1, +S2 Results - Vital Signs Recent Vital Signs: Last Vital Signs Temp 97.1 F L 11/23/17 20:00 Pulse 110 H 11/24/17 05:33 Resp 19 11/23/17 22:00 BP 121/56 L 11/23/17 22:00 Pulse Ox 93 L 11/23/17 22:00 - Labs Result Diagrams: 11/24/17 06:40 11/23/17 15:58 Labs: Laboratory Results - last 24 hr 11/23/17 11/24/17 11/24/17 15:58 06:37 06:37 WBC RBC Hgb Hct MCV MCH MCHC RDW Plt Count MPV Neut % (Auto) Lymph % (Auto) [place] % (Auto) Eos % (Auto) Baso % (Auto) Neut # (Auto) Lymph # (Auto) [place] # (Auto) Eos # (Auto) Baso # (Auto) Neutrophils % (Manual) Band Neutrophils % Lymphocytes % (Manual) Monocytes % (Manual) Metamyelocytes % Myelocytes % Promyelocytes % Nucleated RBC % Toxic Granulation Platelet Estimate Anisocytosis (manual) [place] Cells Smear Path Review PT 10.6 INR 1.0 APTT 76 H D POC Glucose (mg/dL) Lactic Acid 7.2 H* 11/24/17 11/24/17 06:40 07:20 WBC 90.1 H* RBC 4.38 Hgb 11.7 Hct 40.0 MCV 91.4 MCH 26.7 L MCHC 29.2 L RDW 21.0 H Plt Count 330 D MPV 8.2 Neut % (Auto) 92.8 H Lymph % (Auto) 4.4 L [place] % (Auto) 2.2 Eos % (Auto) 0.4 Baso % (Auto) 0.2 Neut # (Auto) 83.7 H Lymph # (Auto) 4.0 [place] # (Auto) 2.0 H Eos # (Auto) 0.3 Baso # (Auto) 0.2 Neutrophils % (Manual) 46 L Band Neutrophils % 33 H* Lymphocytes % (Manual) 4 L Monocytes % (Manual) 1 Metamyelocytes % 8 H Myelocytes % 6 H Promyelocytes % 2 H Nucleated RBC % 2 H Toxic Granulation Present Platelet Estimate Normal Anisocytosis (manual) Moderate [place] Cells Slight Smear Path Review PT INR APTT POC Glucose (mg/dL) 172 H Lactic Acid Assessment & Plan (1) Acute respiratory failure with hypercapnia Status: Acute (2) Chr obstructive pulmonary disease w/ acute lower respiratory infxn Status: Acute
--- NOTE | 2017-11-25 01:10 | CP.PCM.DIS ---
Provider - Provider Date of Admission: 11/23/17 16:58 Attending physician: Sae Roa MD Time Spent in preparation of Discharge (in minutes): 15 Diagnosis - Discharge Diagnosis (1) Acute respiratory failure with hypercapnia Status: Acute (2) Chr obstructive pulmonary disease w/ acute lower respiratory infxn Status: Acute Hospital Course - Lab Results Lab Results: Micro Results 11/23/17 16:00 Blood Blood Culture - Preliminary NO GROWTH AFTER 24 HOURS 11/23/17 15:30 Blood Blood Culture - Preliminary NO GROWTH AFTER 24 HOURS 11/23/17 Unknown Naris MRSA Culture (Admit) - Final MRSA DETECTED Most Recent Lab Values WBC 90.1 K/uL (4.8-10.8) H* 11/24/17 06:40 RBC 4.38 Mil/uL (3.80-5.20) 11/24/17 06:40 Hgb 11.7 g/dL (11.0-16.0) 11/24/17 06:40 Hct 40.0 % (34.0-47.0) 11/24/17 06:40 MCV 91.4 fL (81.0-99.0) 11/24/17 06:40 MCH 26.7 pg (27.0-31.0) L 11/24/17 06:40 MCHC 29.2 g/dL (33.0-37.0) L 11/24/17 06:40 RDW 21.0 % (11.5-14.5) H 11/24/17 06:40 Plt Count 330 K/uL (130-400) D 11/24/17 06:40 MPV 8.2 fL (7.2-11.7) 11/24/17 06:40 Neut % (Auto) 92.8 % (50.0-75.0) H 11/24/17 06:40 Lymph % (Auto) 4.4 % (20.0-40.0) L 11/24/17 06:40 [place] % (Auto) 2.2 % (0.0-10.0) 11/24/17 06:40 Eos % (Auto) 0.4 % (0.0-4.0) 11/24/17 06:40 Baso % (Auto) 0.2 % (0.0-2.0) 11/24/17 06:40 Neut # (Auto) 83.7 K/uL (1.8-7.0) H 11/24/17 06:40 Lymph # (Auto) 4.0 K/uL (1.0-4.3) 11/24/17 06:40 [place] # (Auto) 2.0 K/uL (0.0-0.8) H 11/24/17 06:40 Eos # (Auto) 0.3 K/uL (0.0-0.7) 11/24/17 06:40 Baso # (Auto) 0.2 K/uL (0.0-0.2) 11/24/17 06:40 Neutrophils % (Manual) 46 % (50-75) L 11/24/17 06:40 Band Neutrophils % 33 % (0-2) H* 11/24/17 06:40 Lymphocytes % (Manual) 4 % (20-40) L 11/24/17 06:40 Reactive Lymphs % 1 % (0-0) H 11/23/17 15:58 Monocytes % (Manual) 1 % (0-10) 11/24/17 06:40 Eosinophils % (Manual) 1 % (0-4) 11/23/17 15:58 Metamyelocytes % 8 % (0-0) H 11/24/17 06:40 Myelocytes % 6 % (0-0) H 11/24/17 06:40 Promyelocytes % 2 % (0-0) H 11/24/17 06:40 Nucleated RBC % 2 % (0-0) H 11/24/17 06:40 Smudge Cells Present 11/23/17 15:58 Toxic Granulation Present 11/24/17 06:40 Platelet Estimate Normal (NORMAL) 11/24/17 06:40 Large Platelets Present 11/23/17 15:58 Hypochromasia (manual) Slight 11/23/17 15:58 Anisocytosis (manual) Moderate 11/24/17 06:40 [place] Cells Slight 11/24/17 06:40 Smear Path Review 11/23/17 15:58 PT 10.6 SECONDS (9.7-12.2) 11/24/17 06:37 INR 1.0 11/24/17 06:37 APTT 76 SECONDS (21-34) H D 11/24/17 06:37 Puncture Site Lb 11/23/17 16:49 pCO2 45 mm/Hg (35-45) 11/23/17 16:49 pO2 286 mm/Hg (80-100) H 11/23/17 16:49 HCO3 16.2 mmol/L (21-28) L 11/23/17 16:49 ABG pH 7.18 (7.35-7.45) L* 11/23/17 16:49 ABG Total CO2 18.2 mmol/L (22-28) L 11/23/17 16:49 ABG O2 Saturation 101.0 % (95-98) H 11/23/17 16:49 ABG Base Excess -11.3 mmol/L (-2.0-3.0) L 11/23/17 16:49 Danie Test Na 11/23/17 16:49 ABG Potassium 4.7 mmol/L (3.6-5.2) 11/23/17 16:49 A-a O2 Difference 371.0 mm/Hg 11/23/17 16:49 Respiratory Index 1.3 11/23/17 16:49 Sodium 128.0 mmol/l (132-148) L 11/23/17 16:49 Chloride 104.0 mmol/L (98-107) 11/23/17 16:49 Glucose 194 mg/dl (65-105) H 11/23/17 16:49 Lactate 2.7 mmol/L (0.7-2.1) H 11/23/17 16:49 Vent Mode Bipap 11/23/17 16:49 FiO2 100.0 % 11/23/17 16:49 Inspiratory BiPAP 14 11/23/17 16:49 Expiratory BiPAP 6 11/23/17 16:49 Crit Value Called To Dr. asencio 11/23/17 16:49 Crit Value Called By Aydin hassan 11/23/17 16:49 Crit Value Read Back Y 11/23/17 16:49 Blood Gas Notified Time 16511/23/17 16:49 Sodium 127 mmol/L (132-148) L 11/23/17 15:58 Potassium 4.7 mmol/L (3.6-5.2) 11/23/17 15:58 Chloride 97 mmol/L (98-107) L 11/23/17 15:58 Carbon Dioxide 19 mmol/L (22-30) L 11/23/17 15:58 Anion Gap 15 (10-20) 11/23/17 15:58 BUN 30 mg/dL (7-17) H 11/23/17 15:58 Creatinine 1.6 mg/dL (0.7-1.2) H 11/23/17 15:58 Est GFR ( Amer) 38 11/23/17 15:58 Est GFR (Non-Af Amer) 31 11/23/17 15:58 POC Glucose (mg/dL) 172 mg/dL (65-110) H 11/24/17 07:20 Random Glucose 185 mg/dL (65-105) H 11/23/17 15:58 Lactic Acid 7.2 mmol/L (0.7-2.1) H* 11/24/17 06:37 Calcium 8.0 mg/dl (8.6-10.4) L 11/23/17 15:58 Magnesium 3.2 mg/dL (1.6-2.3) H 11/23/17 15:58 Total Bilirubin 0.3 mg/dL (0.2-1.3) 11/23/17 15:58 AST 44 U/L (14-36) H 11/23/17 15:58 ALT 17 U/L (9-52) 11/23/17 15:58 Alkaline Phosphatase 199 U/L (38-126) H 11/23/17 15:58 Troponin I < 0.0120 ng/mL (0.00-0.120) 11/23/17 15:58 NT-Pro-B Natriuret Pep 3440 pg/mL (0-900) H 11/23/17 15:58 Total Protein 5.5 g/dL (6.3-8.3) L 11/23/17 15:58 Albumin 2.7 g/dL (3.5-5.0) L 11/23/17 15:58 Globulin 2.8 gm/dL (2.2-3.9) 11/23/17 15:58 Albumin/Globulin Ratio 1.0 (1.0-2.1) 11/23/17 15:58 Arterial Blood Potassium 4.7 mmol/L (3.6-5.2) 11/23/17 16:49 Urine Color Trupti (YELLOW) 11/23/17 18:02 Urine Clarity Hazy (Clear) 11/23/17 18:02 Urine pH 5.0 (5.0-8.0) 11/23/17 18:02 Ur Specific [place] 1.027 (1.003-1.030) 11/23/17 18:02 Urine Protein 1+ mg/dL (NEGATIVE) H 11/23/17 18:02 Urine Glucose (UA) Normal mg/dL (Normal) 11/23/17 18: Urine Ketones Trace mg/dL (NEGATIVE) 11/23/17 18: Urine Blood Negative (NEGATIVE) 11/23/17 18: Urine Nitrate Negative (NEGATIVE) 11/23/17 18: Urine Bilirubin Negative (NEGATIVE) 11/23/17 18: Urine Urobilinogen Normal mg/dL (0.2-1.0) 11/23/17 18:02 Ur Leukocyte Esterase Neg [place]/uL (Negative) 11/23/17 18:02 Urine WBC (Auto) 3 /hpf (0-5) 11/23/17 18:02 Urine RBC (Auto) 6 /hpf (0-3) H 11/23/17 18:02 Ur Squamous Epith Cells 1 /hpf (0-5) 11/23/17 18:02 Amorphous Sediment Occ /ul (<OCC) H 11/23/17 18:02 Urine Bacteria Occ (<OCC) H 11/23/17 18:02 Hyaline Casts >20 /lpf (0-2) H 11/23/17 18:02 Urine Yeast (Budding) Many /hpf (NEGATIVE) H 11/23/17 18:02 Discharge Exam - Head Exam Head Exam: NORMAL INSPECTION, NORMOCEPHALIC Discharge Plan - Follow Up Plan Condition: Disposition: WITH WITHOUT AUTOPSY Instructions: Leukocytosis (DC), Leukocytosis (GEN) Referrals: Tyler Cevallos MD [Staff Provider] -
== END 2017-11-24 07:45 | DRG 189 ==
LOC: C.ER 13:22 → C.9I 16:58
PROVIDERS: ADMIT Internal Medicine; ATTEND Internal Medicine
PROC: 5A09457 Assistance with Respiratory Ventilation, 24-96 Consecutive Hours, Continuous Positive Airway Pressure (ICD-10-PCS; principal; 2017-11-23)
DX: J96.02 Acute respiratory failure with hypercapnia (principal); J18.9 Pneumonia, unspecified organism; E87.2 Acidosis; D68.9 Coagulation defect, unspecified; D68.8 Other specified coagulation defects; J44.0 Chronic obstructive pulmonary disease with (acute) lower respiratory infection; J90 Pleural effusion, not elsewhere classified; Z99.81 Dependence on supplemental oxygen; J44.1 Chronic obstructive pulmonary disease with (acute) exacerbation; E11.9 Type 2 diabetes mellitus without complications; Z87.891 Personal history of nicotine dependence; I10 Essential (primary) hypertension; F41.9 Anxiety disorder, unspecified; F32.9 Major depressive disorder, single episode, unspecified; Z85.038 Personal history of other malignant neoplasm of large intestine; I25.10 Atherosclerotic heart disease of native coronary artery without angina pectoris; Z95.5 Presence of coronary angioplasty implant and graft; I25.2 Old myocardial infarction; M48.00 Spinal stenosis, site unspecified; Z79.4 Long term (current) use of insulin